=== PATIENT | female | born 1980 | race Caucasian/White ===

== ENCOUNTER 2020-01-02 05:18 | Inpatient (IN) | payer BC, OTHER ==
[2020-01-02] MEDS ORDERED: Methylergonovine 0.2 MG/1 ML Amp IM PRN (09:15)
[2020-01-02] MEDS ORDERED: Carboprost Tromethamine 250 MCG/1 ML Amp IM PRN (09:15)
[2020-01-02] MEDS ORDERED: Lactated Ringers 1,000 ML IV ONE (09:15)
[2020-01-02] MEDS ORDERED: Acetaminophen 325 MG Tab PO PRN (09:15)
[2020-01-02] MEDS ORDERED: Sodium Chloride 0.9% 10 ML Syringe FLUSH PRN (09:15)
[2020-01-02] MEDS ORDERED: Lidocaine 1% 30 ML SDV INJECT PRN (09:15)
[2020-01-02] MEDS ORDERED: Tranexamic Acid 1,000 MG in Sodium Chloride 0.9% 100 ML IV PRN (09:15)
[2020-01-02] MEDS ORDERED: Misoprostol 400 MCG (4 X 100 MCG TAB) RECTAL PRN (09:15)
[2020-01-02] MEDS ORDERED: Ondansetron 4 MG/2 ML SDV IVPUSH PRN (09:15)
[2020-01-02] MEDS ORDERED: Misoprostol 50 MCG (1/2 of 100 MCG) Tab VAG ONE ×2 (09:24→11:45)
[2020-01-02] MEDS ORDERED: Penicillin G Potassium 5 MILLUNITS in Sodium Chloride 0.9% 100 ML IV ONE (11:00)
[2020-01-02] MEDS: Lactated Ringers 1,000 ML IV SCH ×2 (11:41→22:48)
[2020-01-02] MEDS: Oxytocin/Normal Saline 30 UNIT/500 ML BAG IV SCH ×2 (15:14→21:00)
[2020-01-02] MEDS: Penicillin G Potassium 2.5 MILLUNITS in Sodium Chloride 0.9% 100 ML IV SCH ×2 (15:58→23:03)
--- NOTE | 2020-01-02 18:40 | PCM.LDHP ---
L&D History of Present Illness - General Date of Service: 01/02/20 (Admit H&P) Admit Problem/Dx: Patient Status Order with Admit Dx/Problem 01/02/20 09:16 Patient Status [ADT] Routine Admission Diagnosis/Problem Admission Diagnosis/Problem High risk Source of Information: Family, Old Records, Provider, Other ([facility] notes ) History Limitations: Reports: No Limitations - History of Present Illness Introduction:: 39yo WF presents for induction @ 39w1d as scheduled. no bleeding or LOF. baby active. no pre-E sx. 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 - Past Surgical History HEENT Surgical History: Reports: Oral Surgery GI Surgical History: Reports: Cholecystectomy Female Surgical History: Reports: Other (See Below) Other Female Surgeries/Procedures: malignant neoplasm with lumpectomy Musculoskeletal Surgical History: Reports: Arthroscopic Knee Other Musculoskeletal Surgeries/Procedures:: L) knee athroscopy 2019 Oncologic Surgical History: Reports: Lumpectomy Social & Family History - Family History Family Medical History: Unobtainable - Tobacco Use Smoking Status *Q: Never Smoker Second Hand Smoke Exposure: No - Caffeine Use Caffeine Use: Reports: Coffee - Recreational Drug Use Recreational Drug Use: No - Living Situation & Occupation Living situation: Reports: , with Significant Other Social History Comment: first baby with this new SO/Otf H&P Review of Systems - Review of Systems: Review Of Systems: Comprehensive ROS is negative, except as noted in HPI. L&D Exam - Exam Exam: See Below - Vital Signs Vital Signs: Last Vital Signs Temp 97.4 F 01/02/20 15:30 Pulse 100 01/02/20 16:30 Resp 18 01/02/20 16:30 BP 121/73 01/02/20 16:30 Pulse Ox Weight: 249 lb - OB Specific Contraction Duration (sec): 60-80 Contraction Frequency (min): 1.5-2.5 Contraction Intensity: Mild to Moderate - Srinivasan Score Srinivasan Score Cervix Position: Midposition Srinivasan Score Consistency: Soft Srinivasan Score Effacement: 0-30% Srinivasan Score Dilation: 1-2 cm Srinivasan Score 's Station: -3 Srinivasan Score Total: 4 - Exam General: Alert, Oriented HEENT: PERRLA, Conjunctiva Clear, EACs Clear, EOMI, Hearing Intact, Mucosa Moist & Hitchcock, Nares Patent, Normal Nasal Septum, Posterior Pharynx Clear, TMs Clear Neck: Supple, Trachea Midline Lungs: Clear to Auscultation, Normal Respiratory Effort Cardiovascular: Regular Rate, Regular Rhythm GI/Abdominal Exam: Normal Bowel Sounds, Soft, Non-Tender, No Organomegaly, No Distention, No Abnormal Bruit, No Mass, Pelvis Stable Rectal Exam: Normal Exam, Normal Rectal Tone Genitourinary: Normal external exam, Normal bimanual exam, Normal speculum exam Back Exam: Normal Inspection, Full Range of Motion Extremities: Normal Inspection, Normal Range of Motion, Non-Tender, Normal Capillary Refill, Pedal Edema Skin: Warm, Dry, Intact Neurological: Cranial Nerves Intact, Reflexes Equal Bilateral Psychiatric: Alert, Normal Affect, Normal Mood - Patient Data Lab Results Last 24 hrs: Laboratory Results - last 24 hr 01/02/20 01/02/20 01/02/20 Range/Units 09:15 09:25 10:33 WBC (5.0-10.0) 10^3/uL RBC (4.2-5.4) 10^6/uL Hgb (12.0-16.0) g/dL Hct (37.0-47.0) % MCV (80-100) fL MCH (27.0-34.0) pg MCHC (33.0-35.0) g/dL Plt Count (150-450) 10^3/uL BUN 6 L (7-18) mg/dL Creatinine (0.55-1.02) mg/dL Est Cr Clr Drug Dosing mL/min Estimated GFR (MDRD) Uric Acid 4.9 (2.6-6.0) mg/dL AST 20 (15-37) U/L ALT 24 (14-59) U/L Lactate Dehydrogenase 189 (81-234) U/L Urine Color Dark yellow (YELLOW) Urine Appearance Slightly cloudy (CLEAR) Urine pH 6.5 (5.0-9.0) Ur Specific [place] >= 1.030 (1.005-1.030) Urine Protein Trace H (NEGATIVE) Urine Glucose (UA) Negative (NEGATIVE) Urine Ketones Negative (NEGATIVE) Urine Occult Blood Negative (NEGATIVE) Urine Nitrite Negative (NEGATIVE) Urine Bilirubin Negative (NEGATIVE) Urine Urobilinogen 0.2 (0.2-1.0) mg/dL Ur Leukocyte Esterase Negative (NEGATIVE) Ur Random Creatinine 210.94 (No establ ref range) mg/dL U Random Total Protein 22.7 H (0.0-11.9) mg/dL Protein/Creatinin Ratio 107.6 (<150.0) mg/g SARS-CoV-2 RNA (RT-PCR) (NEGATIVE) Blood Type Gel Antibody Screen 01/02/20 01/02/20 01/02/20 Range/Units 10:33 10:33 10:33 WBC 8.5 (5.0-10.0) 10^3/uL RBC 4.53 (4.2-5.4) 10^6/uL Hgb 13.7 (12.0-16.0) g/dL Hct 40.1 (37.0-47.0) % MCV 88.5 (80-100) fL MCH 30.2 (27.0-34.0) pg MCHC 34.2 (33.0-35.0) g/dL Plt Count 153 (150-450) 10^3/uL BUN (7-18) mg/dL Creatinine 0.85 (0.55-1.02) mg/dL Est Cr Clr Drug Dosing 92.86 mL/min Estimated GFR (MDRD) > 60 Uric Acid (2.6-6.0) mg/dL AST (15-37) U/L ALT (14-59) U/L Lactate Dehydrogenase (81-234) U/L Urine Color (YELLOW) Urine Appearance (CLEAR) Urine pH (5.0-9.0) Ur Specific [place] (1.005-1.030) Urine Protein (NEGATIVE) Urine Glucose (UA) (NEGATIVE) Urine Ketones (NEGATIVE) Urine Occult Blood (NEGATIVE) Urine Nitrite (NEGATIVE) Urine Bilirubin (NEGATIVE) Urine Urobilinogen (0.2-1.0) mg/dL Ur Leukocyte Esterase (NEGATIVE) Ur Random Creatinine (No establ ref range) mg/dL U Random Total Protein (0.0-11.9) mg/dL Protein/Creatinin Ratio (<150.0) mg/g SARS-CoV-2 RNA (RT-PCR) (NEGATIVE) Blood Type A POSITIVE Gel Antibody Screen Negative 01/02/20 Range/Units 10:35 WBC (5.0-10.0) 10^3/uL RBC (4.2-5.4) 10^6/uL Hgb (12.0-16.0) g/dL Hct (37.0-47.0) % MCV (80-100) fL MCH (27.0-34.0) pg MCHC (33.0-35.0) g/dL Plt Count (150-450) 10^3/uL BUN (7-18) mg/dL Creatinine (0.55-1.02) mg/dL Est Cr Clr Drug Dosing mL/min Estimated GFR (MDRD) Uric Acid (2.6-6.0) mg/dL AST (15-37) U/L ALT (14-59) U/L Lactate Dehydrogenase (81-234) U/L Urine Color (YELLOW) Urine Appearance (CLEAR) Urine pH (5.0-9.0) Ur Specific [place] (1.005-1.030) Urine Protein (NEGATIVE) Urine Glucose (UA) (NEGATIVE) Urine Ketones (NEGATIVE) Urine Occult Blood (NEGATIVE) Urine Nitrite (NEGATIVE) Urine Bilirubin (NEGATIVE) Urine Urobilinogen (0.2-1.0) mg/dL Ur Leukocyte Esterase (NEGATIVE) Ur Random Creatinine (No establ ref range) mg/dL U Random Total Protein (0.0-11.9) mg/dL Protein/Creatinin Ratio (<150.0) mg/g SARS-CoV-2 RNA (RT-PCR) Negative (NEGATIVE) Blood Type Gel Antibody Screen Result Diagrams: 01/02/20 10:33 01/02/20 10:33 Problem List Initiated/Reviewed/Updated: Yes Orders Last 24hrs: Active Orders 24 hr Category Date Time Status Patient Status [ADT] Routine ADT 01/02/20 09:16 Active Communication Order [RC] ASDIRECTED Care 01/02/20 09:16 Active Heart Tones [RC] PER UNIT ROUTINE Care 01/02/20 09:16 Active Notify Provider Vital Signs OB [RC] ASDIRECTED Care 01/02/20 09:16 Active Notify Provider [RC] PRN Care 01/02/20 09:16 Active Pump Management, Intrathecal [RC] ASDIRECTED Care 01/02/20 09:19 Active Up ad Abida [RC] ASDIRECTED Care 01/02/20 09:16 Active Vital Signs [RC] PER UNIT ROUTINE Care 01/02/20 09:16 Active Acetaminophen [Tylenol] Med 01/02/20 09:15 Active 650 mg PO Q4H PRN Carboprost Tromethamine [Hemabate DS] Med 01/02/20 09:15 Active 250 mcg IM ASDIRECTED PRN Lactated Ringers [Ringers, Lactated] 1,000 ml Med 01/02/20 09:15 Active IV ASDIRECTED Lidocaine 1% [Xylocaine-MPF 1%] Med 01/02/20 09:15 Active 30 ml INJECT ASDIRECTED PRN Methylergonovine [Methergine] Med 01/02/20 09:15 Active 0.2 mg IM ASDIRECTED PRN Ondansetron [Zofran] Med 01/02/20 09:15 Active 4 mg IVPUSH Q4H PRN Oxytocin/Normal Saline [Pitocin in NS 30 UNIT/500 ML] Med 01/02/20 10:00 Active 30 unit in 500 ml IV TITRATE Penicillin G Potassium [Pfizerpen] 2.5 millunits Med 01/02/20 20:00 Active Sodium Chloride 0.9% [Normal Saline] 100 ml IV Q4H Sodium Chloride 0.9% [Saline Flush] Med 01/02/20 09:15 Active 10 ml FLUSH ASDIRECTED PRN Tranexamic Acid [Cyklokapron] 1,000 mg Med 01/02/20 09:15 Active Sodium Chloride 0.9% [Normal Saline] 100 ml IV ONETIME miSOPROStoL [Cytotec] Med 01/02/20 09:15 Active 800 mcg RECTAL ASDIRECTED PRN Saline Lock Insert [OM.PC] Routine Oth 01/02/20 09:16 Ordered Resuscitation Status Routine Resus Stat 01/02/20 09:15 Ordered Medication Orders Acetaminophen (Tylenol) 650 mg PO Q4H PRN PRN Reason: Pain (Mild 1-3) and fever Carboprost Tromethamine (Hemabate Ds) 250 mcg IM ASDIRECTED PRN PRN Reason: HEMORRHAGE Lactated Ringer's (Ringers, Lactated) 1,000 mls @ 125 mls/hr IV ASDIRECTED LOLA Last Admin: 01/02/20 11:41 Dose: 125 mls/hr Oxytocin/Sodium Chloride (Pitocin In Ns 30 Unit/500 Ml) 30 unit in 500 mls @ 2 mls/hr IV TITRATE LOLA; Protocol Last Titration: 01/02/20 18:15 Dose: 7 munits/min, 7 mls/hr Titration: 01/02/20 17:15 Dose: 5 munits/min, 5 mls/hr Titration: 01/02/20 16:45 Dose: 6 munits/min, 6 mls/hr Titration: 01/02/20 16:00 Dose: 4 munits/min, 4 mls/hr Admin: 01/02/20 15:14 Dose: 2 munits/min, 2 mls/hr Tranexamic Acid 1,000 mg/ (Sodium Chloride) 110 mls @ 660 mls/hr IV ONETIME PRN PRN Reason: Bleeding Penicillin G Potassium 2.5 (millunits/ Sodium Chloride) 100 mls @ 200 mls/hr IV Q4H [facility] Lidocaine HCl (Xylocaine-Mpf 1%) 30 ml INJECT ASDIRECTED PRN PRN Reason: Perineal Repair Methylergonovine Maleate (Methergine) 0.2 mg IM ASDIRECTED PRN PRN Reason: Hemorrhage Misoprostol (Cytotec) 800 mcg RECTAL ASDIRECTED PRN PRN Reason: Hemorrhage Ondansetron HCl (Zofran) 4 mg IVPUSH Q4H PRN PRN Reason: Nausea/Vomiting Sodium Chloride (Saline Flush) 10 ml FLUSH ASDIRECTED PRN PRN Reason: Keep Vein Open Assessment/Plan Comment:: Assessment: 39yo WF G5p#013 @ 39w1d high risk AMA Hx gestational thrombocytopenia and pre-E, PLT 153 today BP WNL GBS positive A+ blood type RI anxiety hypothyroid Hx breast cancer NST reactive labs reassuring Plan: admit cytotec 50mcg consider repeat cytotec, pitocin or AROM as indicated appropriate as discussed. PCN IV prophylaxis as ordered. all questions answered for Jennifer and Otf. further management pending her clinical course in labor. b
--- NOTE | 2020-01-02 18:46 | PCM.SN.2 ---
- Free Text/Narrative Note: DOS: 01-02-2020 39yo WF doing well. 39w1d presented for induction this morning had 50mcg Cytotec this a.m. and is now started on pitocin. having cxns but not really feeling them. Has had 2 doses of PCN for GBS positive status tracing reassuring cervix soft, 3+ BOWI AROM carried out with return of large amount clear fluid vertex settling down against cervix nicely ?finger @ 8 o'clock position will continue to watch closely. further management pending her clinical course. all questions answered. hmb
[2020-01-02] MEDS ORDERED: Citric Acid/Sodium Citrate Solution 30 ML Cup ONE (19:28)
[2020-01-02] MEDS ORDERED: Citric Acid/Sodium Citrate Solution 30 ML Cup PO ONE (19:28)
[2020-01-02] MEDS ORDERED: ceFAZolin 2 GM in Premix Bag 1 BAG IV ONE (19:39)
[2020-01-02] MEDS ORDERED: Oxytocin/Normal Saline 60 UNIT/1,000 ML BAG ONE (19:41)
[2020-01-02] MEDS ORDERED: Penicillin G Potassium 2.5 MILLUNITS in Sodium Chloride 0.9% 100 ML IV SCH (20:00)
[2020-01-02] MEDS ORDERED: Famotidine 20 MG/2 ML SDV ONE (21:03)
[2020-01-02] MEDS ORDERED: HYDROmorphone 0.5 MG/0.5 ML Syringe IVPUSH PRN (21:16)
[2020-01-02] MEDS ORDERED: Promethazine 25 MG/ML SDV IM PRN (21:19)
--- NOTE | 2020-01-02 21:22 | PN ---
DATE: 01/02/2020 This delightful 39-year-old 5, para 3-0-1-3 presented as scheduled at 39 weeks 1 day for induction for her high-risk . Risk factors include advanced maternal age, history of gestational thrombocytopenia and preeclampsia, history of breast cancer which has been treated, positive group B strep, hypothyroidism, anxiety. She is A-positive blood type and rubella immune. On admission today, her labs were drawn and her platelet count was up to 153, and she had reassuring labs otherwise. She was started on IV penicillin for group B strep prophylaxis. Her nonstress test was reassuring. Cervix was 2 cm dilated, 25% effaced, minus 3 station, very soft, mid position to anterior with a vertex presentation, and bag of water intact. Cytotec 50 mcg was placed. 4 hours later, we started Pitocin IV. She developed contractions and her cervix progressed onto 3+ cm dilated. The head was palpable against the cervix. Minus 3 station. Artificial rupture of membranes was carried out with return of very large copious amount of clear fluid. Towards the end of the fluid, we did notice some bleeding. Examination showed the vertex to be against the cervix; however, I could not palpate what appeared to possibly be a finger at the 8 o'clock position. She continued to have leaking of fluid, but was noticed to have increased bright red bleeding. She denied any uterine tenderness, but was feeling more pressure. She did develop some variable decelerations and these became increasingly pronounced with each contraction. On examination, her cervix was dilating. A hand could still be palpated. She was also noted to have increasing bright red bleeding anteriorly from the cervix. A quick-look ultrasound did show vertex presentation. There was no evidence of a nuchal cord that could be seen. The finger had essentially resolved, though I could still feel it very far up posteriorly. However, with the continued variable decelerations and continued vaginal bleeding and her history of gestational thrombocytopenia and preeclampsia, concern for placental abruption and her being remote from vaginal delivery, decision was made to proceed with primary low transverse section as had been discussed with the patient and her partner. We will review the procedure with them. Dr. Day will be here to assist. We will review the risks, alternatives, and benefits. Risks will include, but not be limited to, possible hemorrhage with possible need for blood transfusion with its inherent risks. I have already ordered a type and screen this morning with her blood work in anticipation of possible need of a C- section. We will order 2 g of Ancef for her for preop antibiotics, and she will be due for her next dose of antibiotics at 8 o'clock anyway. We will review risk of reaction to anesthesia; possible injury to maternal organs or fetus; possible risk of DVT, PE; and the use of ARAM stockings, SCDs, and early ambulation, etc. Anticipate use of spinal anesthesia and hopefully Pfannenstiel incision, further management pending her clinical course. All other questions would be answered and consent obtained and form signed. [facility] /[id number]
[2020-01-02] MEDS ORDERED: Butorphanol 2 MG/ML SDV IVPUSH PRN (21:25)
[2020-01-02] MEDS ORDERED: Naloxone 2 MG/2 ML Syringe IVPUSH PRN (21:59)
[2020-01-02] MEDS ORDERED: diphenhydrAMINE 50 MG/ML SDV IVPUSH PRN (21:59)
[2020-01-02] MEDS ORDERED: ePHEDrine 50 MG/ML SDV IVPUSH PRN (21:59)
[2020-01-02] MEDS ORDERED: Ketorolac 30 MG/ML SDV IVPUSH SCH (22:00)
--- NOTE | 2020-01-02 23:39 | OR ---
DATE: 01/02/2020 PREOPERATIVE DIAGNOSES: 1. A 39-year-old, 5, para 3-0-1-3 at 39 week 1 day. 2. High risk intrauterine . 3. Advanced maternal age. 4. Non-reassuring heart tone pattern with vaginal bleeding. 5. Suspect placental abruption. 6. Group B streptococcus positive, receiving penicillin prophylaxis. 7. History of gestational thrombocytopenia and preeclampsia with variable platelet count, admit platelets 153. 8. Hypothyroidism, controlled. 9. Blood type A positive. 10.Rubella immune. 11.Anxiety. 12.History of breast cancer, treated. 13.Unsuccessful induction. POSTOPERATIVE DIAGNOSES: 1. A 39-year-old white female, 5, now para 4-0-1-4. 2. High risk . 3. Advanced maternal age, 39 weeks 1 day. 4. Non-reassuring heart tone pattern with confirmed placental abruption/bleeding. 5. A viable male infant, greater than 4000 g. 6. Suspect placental abruption. 7. Group B streptococcus positive, receiving penicillin prophylaxis. 8. History of gestational thrombocytopenia and preeclampsia with variable platelet count, admit platelets 153. 9. Hypothyroidism, controlled. 10.Blood type A positive. 11.Rubella immune. 12.Anxiety. 13.History of breast cancer, treated. 14.Unsuccessful induction. PROCEDURE: Primary low-transverse section. ANESTHESIA: Spinal per Koko Mello CRNA. ASSISTING SURGEON: Georges Day MD, ABSORPTION AND ADSORPTION ENGINEER. PREOPERATIVE ANTIBIOTICS: 2 g Ancef immediately preop, prophylactic penicillin x2 doses received for group B Strep positive status since admission. ESTIMATED BLOOD LOSS: 1000 mL. INDICATIONS: This delightful 39-year-old, G5, P 3-0-1-3, presented for induction and subsequently was found to have vaginal bleeding and non-reassuring heart tone tracing and was remote from vaginal delivery. The decision was made to proceed with primary low-transverse section. The status showed very deep variable decelerations, however, was recovering between contractions. Therefore, we elected to proceed with a spinal anesthesia. PROCEDURE IN DETAIL: A Inman catheter had been placed on the floor, and she underwent spinal anesthesia without complications and with excellent results. She was subsequently prepped and draped in the usual sterile manner. A time-out was performed in my presence. A skin incision had been marked in the anticipated Pfannenstiel placement. The patient was tested and had excellent anesthesia. A scalpel was used to make a skin incision. Electrocautery was used down through the subcutaneous tissue to the fascia, which was divided transversely. Superior and inferior fascial flaps were developed with sharp and blunt dissection. The rectus was divided in the midline, and the peritoneum was identified and entered bluntly. The incision was opened until we had excellent visualization of the lower uterine segment. An XL Gilberto retractor was placed without difficulty. A stab incision was made by me into the lower uterine segment. Dr. Day entered the uterus bluntly and immediately a very large amount of dark blood was encountered and continued to rapidly come out of the uterine incision. We subsequently extended the uterine incision bluntly until we encounter the vertex which was elevated up into the uterine incision without difficulty. The hand could be seen as expected posteriorly, but did not seem to be causing any difficulty. The baby was delivered without incident, and the cord was noted to be wrapped twice around his right leg, however, it was easily untangled. No nuchal cord was noted. The cord was doubly clamped by me and then cut. The baby was suctioned and wiped clean and dry and had a strong cry at . He was shown to the parents and then brought over to the warmer to the waiting nursery staff. Note, his time of was 2021 on 01/02/2020, and weight was later found to be 8 pounds 15 ounces/4040 g with scores of 9 and 9 at 1 and 5 minutes respectively. This viable male had voided immediately after delivery. Cord blood sample was obtained by . The uterus was firming up and the placenta was removed with trailing membranes. The uterus was empty and the incision edges were grasped with Lopez forceps. They were closed with a running locking #1 Vicryl suture. [id number] hemostatic sutures were placed at the end of both the right and left side of the incision. More hemostatic sutures were placed by Dr. Day on the left side of the incision on the inferior portion, and hemostasis was confirmed. Electrocautery was used to stop any areas of oozing. The incision was again examined and found to be hemostatic. The gutters were examined and were free of all clots with no sign of active bleeding. The Gilberto retractor was removed, and the incision was examined once again and found to be hemostatic. Irrigation fluid was placed over the incision and suctioned with the final examination showing hemostasis. The peritoneum was closed with running suture. The fascia was closed with a running PDS loop suture with excellent results. Subcutaneous tissue was examined and any bleeders were electrocauterized. The skin was closed with a subcuticular suture on a Thaddeus needle. Tincture of benzoin was applied to the skin followed by Steri-Strips and sterile dressing. The patient tolerated the procedure well. Her Inman continued to drain clear urine. All counts were correct. There were no intraoperative complications. She continued to have Pitocin running per protocol infusing in her IV, and her fundus was firm. [facility] /[id number]
[2020-01-03] MEDS: Ketorolac 30 MG/ML SDV IVPUSH SCH ×3 (02:46→14:47)
[2020-01-03] MEDS: ceFAZolin 1 GM in Premix Bag 1 BAG IV SCH ×3 (05:27→21:48)
[2020-01-03] MEDS: Lactated Ringers 1,000 ML IV SCH (08:15)
[2020-01-03] MEDS: Prenatal Multivitamin with Calcium/Folic Acid/Iron Tab PO SCH (08:29)
[2020-01-03] MEDS: Docusate Sodium 100 MG Cap PO PRN ×2 (08:30→21:48)
[2020-01-03] MEDS: Simethicone 80 MG Tab.Chew PO SCH ×4 (08:30→21:47)
--- NOTE | 2020-01-03 09:42 | PCM.PNPP ---
- General Info Date of Service: 01/03/20 (POD/PPD#1 S/P Primary LTC/S) Functional Status: Reports: Pain Controlled, Tolerating Diet, Ambulating - Review of Systems General: Reports: No Symptoms HEENT: Reports: No Symptoms Pulmonary: Reports: No Symptoms Cardiovascular: Reports: No Symptoms Gastrointestinal: Reports: No Symptoms Genitourinary: Reports: No Symptoms Musculoskeletal: Reports: No Symptoms Skin: Reports: No Symptoms Neurological: Reports: No Symptoms Psychiatric: Reports: No Symptoms - General Info Date of Service: 01/03/20 (PPD/POD # 1 S/P Primary LTC/S) - Patient Data Vital Signs - Most Recent: Last Vital Signs Temp 98.6 F 01/03/20 08:00 Pulse 97 01/03/20 08:00 Resp 16 01/03/20 08:00 BP 102/66 01/03/20 08:00 Pulse Ox 100 01/03/20 08:00 Weight - Most Recent: 249 lb I&O - Last 24 Hours: Intake & Output 01/02/20 01/03/20 01/03/20 22:59 06:59 14:59 Intake Total 187 350 Output Total 1275 550 Balance 187 -1275 -200 Lab Results - Last 24 Hours: Laboratory Results - last 24 hr 01/02/20 01/02/20 01/02/20 Range/Units 09:15 09:25 10:33 WBC (5.0-10.0) 10^3/uL RBC (4.2-5.4) 10^6/uL Hgb (12.0-16.0) g/dL Hct (37.0-47.0) % MCV (80-100) fL MCH (27.0-34.0) pg MCHC (33.0-35.0) g/dL Plt Count (150-450) 10^3/uL BUN 6 L (7-18) mg/dL Creatinine (0.55-1.02) mg/dL Est Cr Clr Drug Dosing mL/min Estimated GFR (MDRD) Uric Acid 4.9 (2.6-6.0) mg/dL AST 20 (15-37) U/L ALT 24 (14-59) U/L Lactate Dehydrogenase 189 (81-234) U/L Urine Color Dark yellow (YELLOW) Urine Appearance Slightly cloudy (CLEAR) Urine pH 6.5 (5.0-9.0) Ur Specific [place] >= 1.030 (1.005-1.030) Urine Protein Trace H (NEGATIVE) Urine Glucose (UA) Negative (NEGATIVE) Urine Ketones Negative (NEGATIVE) Urine Occult Blood Negative (NEGATIVE) Urine Nitrite Negative (NEGATIVE) Urine Bilirubin Negative (NEGATIVE) Urine Urobilinogen 0.2 (0.2-1.0) mg/dL Ur Leukocyte Esterase Negative (NEGATIVE) Ur Random Creatinine 210.94 (No establ ref range) mg/dL U Random Total Protein 22.7 H (0.0-11.9) mg/dL Protein/Creatinin Ratio 107.6 (<150.0) mg/g SARS-CoV-2 RNA (RT-PCR) (NEGATIVE) Blood Type Gel Antibody Screen 01/02/20 01/02/20 01/02/20 Range/Units 10:33 10:33 10:33 WBC 8.5 (5.0-10.0) 10^3/uL RBC 4.53 (4.2-5.4) 10^6/uL Hgb 13.7 (12.0-16.0) g/dL Hct 40.1 (37.0-47.0) % MCV 88.5 (80-100) fL MCH 30.2 (27.0-34.0) pg MCHC 34.2 (33.0-35.0) g/dL Plt Count 153 (150-450) 10^3/uL BUN (7-18) mg/dL Creatinine 0.85 (0.55-1.02) mg/dL Est Cr Clr Drug Dosing 92.86 mL/min Estimated GFR (MDRD) > 60 Uric Acid (2.6-6.0) mg/dL AST (15-37) U/L ALT (14-59) U/L Lactate Dehydrogenase (81-234) U/L Urine Color (YELLOW) Urine Appearance (CLEAR) Urine pH (5.0-9.0) Ur Specific [place] (1.005-1.030) Urine Protein (NEGATIVE) Urine Glucose (UA) (NEGATIVE) Urine Ketones (NEGATIVE) Urine Occult Blood (NEGATIVE) Urine Nitrite (NEGATIVE) Urine Bilirubin (NEGATIVE) Urine Urobilinogen (0.2-1.0) mg/dL Ur Leukocyte Esterase (NEGATIVE) Ur Random Creatinine (No establ ref range) mg/dL U Random Total Protein (0.0-11.9) mg/dL Protein/Creatinin Ratio (<150.0) mg/g SARS-CoV-2 RNA (RT-PCR) (NEGATIVE) Blood Type A POSITIVE Gel Antibody Screen Negative 01/02/20 01/03/20 Range/Units 10:35 06:30 WBC 13.8 H (5.0-10.0) 10^3/uL RBC 3.50 L (4.2-5.4) 10^6/uL Hgb 10.6 L D (12.0-16.0) g/dL Hct 31.3 L (37.0-47.0) % MCV 89.4 (80-100) fL MCH 30.3 (27.0-34.0) pg MCHC 33.9 (33.0-35.0) g/dL Plt Count 157 (150-450) 10^3/uL BUN (7-18) mg/dL Creatinine (0.55-1.02) mg/dL Est Cr Clr Drug Dosing mL/min Estimated GFR (MDRD) Uric Acid (2.6-6.0) mg/dL AST (15-37) U/L ALT (14-59) U/L Lactate Dehydrogenase (81-234) U/L Urine Color (YELLOW) Urine Appearance (CLEAR) Urine pH (5.0-9.0) Ur Specific [place] (1.005-1.030) Urine Protein (NEGATIVE) Urine Glucose (UA) (NEGATIVE) Urine Ketones (NEGATIVE) Urine Occult Blood (NEGATIVE) Urine Nitrite (NEGATIVE) Urine Bilirubin (NEGATIVE) Urine Urobilinogen (0.2-1.0) mg/dL Ur Leukocyte Esterase (NEGATIVE) Ur Random Creatinine (No establ ref range) mg/dL U Random Total Protein (0.0-11.9) mg/dL Protein/Creatinin Ratio (<150.0) mg/g SARS-CoV-2 RNA (RT-PCR) Negative (NEGATIVE) Blood Type Gel Antibody Screen Med Orders - Current: Current Medications Acetaminophen (Tylenol) 650 mg PO Q4H PRN PRN Reason: Pain (Mild 1-3) and fever Butorphanol Tartrate (Stadol) 0.4 mg IVPUSH Q3H PRN PRN Reason: Itching Last Admin: 01/02/20 21:51 Dose: 0.4 mg Carboprost Tromethamine (Hemabate Ds) 250 mcg IM ASDIRECTED PRN PRN Reason: HEMORRHAGE Diphenhydramine HCl (Benadryl) 25 mg IVPUSH Q6H PRN PRN Reason: Itching or Nausea Last Admin: 01/02/20 22:35 Dose: 25 mg Docusate Sodium (Colace) 100 mg PO Q12H PRN PRN Reason: Constipation Last Admin: 01/03/20 08:30 Dose: 100 mg Ephedrine Sulfate (Ephedrine Sulfate) 5 mg IVPUSH SEECOMMENT PRN PRN Reason: Other Hydromorphone HCl (Dilaudid) 0.5 mg IVPUSH Q2H PRN PRN Reason: Pain (moderate 4-6) Lactated Ringer's (Ringers, Lactated) 1,000 mls @ 125 mls/hr IV ASDIRECTED LOLA Last Admin: 01/03/20 08:15 Dose: 125 mls/hr Oxytocin/Sodium Chloride (Pitocin In Ns 30 Unit/500 Ml) 30 unit in 500 mls @ 2 mls/hr IV TITRATE LOLA; Protocol Last Titration: 01/02/20 23:10 Dose: 0 mls/hr Tranexamic Acid 1,000 mg/ (Sodium Chloride) 110 mls @ 660 mls/hr IV ONETIME PRN PRN Reason: Bleeding Cefazolin Sodium/Dextrose 1 gm (/ Premix) 50 mls @ 100 mls/hr IV Q8HR [facility]A Stop: 01/03/20 22:29 Last Admin: 01/03/20 05:27 Dose: 100 mls/hr Ibuprofen (Motrin) 800 mg PO Q8H PRN PRN Reason: mild pain or fever Ketorolac Tromethamine (Toradol) 15 mg IVPUSH Q6H LOLA Stop: 01/03/20 15:01 Last Admin: 01/03/20 08:30 Dose: 15 mg Lidocaine HCl (Xylocaine-Mpf 1%) 30 ml INJECT ASDIRECTED PRN PRN Reason: Perineal Repair Methylergonovine Maleate (Methergine) 0.2 mg IM ASDIRECTED PRN PRN Reason: Hemorrhage Misoprostol (Cytotec) 800 mcg RECTAL ASDIRECTED PRN PRN Reason: Hemorrhage Naloxone HCl (Narcan) 0.1 mg IVPUSH SEECOMMENT PRN PRN Reason: Respiratory Depression Ondansetron HCl (Zofran) 4 mg IVPUSH Q4H PRN PRN Reason: Nausea/Vomiting Oxycodone/Acetaminophen (Percocet 325-5 Mg) 1 tab PO Q4H PRN PRN Reason: Pain (moderate 4-6) Oxycodone/Acetaminophen (Percocet 325-5 Mg) 2 tab PO Q4H PRN PRN Reason: Pain (moderate 4-6) Prenat Multivit/[place]/Iron/Folic Ac ( Plus Iron) 1 each PO DAILY [facility] Last Admin: 01/03/20 08:29 Dose: 1 each Promethazine HCl (Phenergan) 12.5 mg IM Q6H PRN PRN Reason: Nausea/Vomiting Simethicone (Simethicone) 160 mg PO QID [facility] Last Admin: 01/03/20 08:30 Dose: 160 mg Sodium Chloride (Saline Flush) 10 ml FLUSH ASDIRECTED PRN PRN Reason: Keep Vein Open Discontinued Medications Citric Acid/Sodium Citrate (Bicitra Solution) Confirm Administered Dose 30 ml .ROUTE .STK-MED ONE Stop: 01/02/20 19:29 Last Admin: 01/02/20 19:50 Dose: 30 ml Famotidine (Pepcid) Confirm Administered Dose 20 mg .ROUTE .STK-MED ONE Stop: 01/02/20 21:04 Lactated Ringer's (Ringers, Lactated) 1,000 mls @ 500 mls/hr IV BOLUS ONE Stop: 01/02/20 11:14 Last Admin: 01/02/20 22:41 Dose: Not Given Penicillin G Potassium 5 (millunits/ Sodium Chloride) 100 mls @ 200 mls/hr IV ONETIME ONE Stop: 01/02/20 11:29 Last Admin: 01/02/20 11:42 Dose: 200 mls/hr Penicillin G Potassium 2.5 (millunits/ Sodium Chloride) 100 mls @ 200 mls/hr IV Q4HR [facility] Last Admin: 01/02/20 23:03 Dose: Not Given Penicillin G Potassium 2.5 (millunits/ Sodium Chloride) 100 mls @ 200 mls/hr IV Q4H [facility] Last Admin: 01/02/20 22:47 Dose: Not Given Cefazolin Sodium/Dextrose 2 gm (/ Premix) 50 mls @ 100 mls/hr IV ONETIME ONE Stop: 01/02/20 20:08 Last Admin: 01/02/20 19:54 Dose: 100 mls/hr Oxytocin/Sodium Chloride (Pitocin In Ns 30 Unit/500 Ml) Confirm Administered Dose 60 unit in 1,000 mls @ as directed .ROUTE .STK-MED ONE Stop: 01/02/20 19:42 Misoprostol (Cytotec) 50 mcg VAG ONETIME ONE Stop: 01/02/20 09:25 Last Admin: 01/02/20 11:46 Dose: Not Given Misoprostol (Cytotec) 50 mcg VAG ONETIME ONE Stop: 01/02/20 11:46 Last Admin: 01/02/20 11:47 Dose: 50 mcg - Interaction Infant Disposition, : [place] in Room with Family Interaction: Holding Infant Infant Feeding: Bottle Fed Infant Support Person: Significant Other - Recovery Exam Fundal Tone: Firm Fundal Level: At Umbilicus Fundal Placement: Midline Lochia Amount: Small Lochia Color: Rubra/Red Perineum Description: Intact, Minimal Bruising/Swelling Episiotomy/Laceration: None Bladder Status: Nonpalpable Urinary Elimination: Indwelling Catheter - Exam General: Alert, Oriented, Cooperative, No Acute Distress HEENT: Pupils Equal, Pupils Reactive, EOMI, Mucous Membr. Moist/[place] Neck: Supple Lungs: Clear to Auscultation, Normal Respiratory Effort Cardiovascular: Regular Rate, Regular Rhythm, No Murmurs GI/Abdominal Exam: Normal Bowel Sounds, Soft, Non-Tender, No Distention Extremities: Normal Inspection, Normal Range of Motion, Non-Tender, No Pedal Edema, Normal Capillary Refill Skin: Warm, Dry, Intact Wound/Incisions: Drainage (Slight drainage on right and left side through bandage otherwise dry and intact.) Neurological: No New Focal Deficit, Normal Gait, Normal Speech, Normal Tone, Strength Equal Bilateral Psy/Mental Status: Alert, Normal Affect, Normal Mood - Problem List Review Problem List Initiated/Reviewed/Updated: Yes - Assessment Assessment:: PPD/POD # 1 S/P LTC/S Doing well Slight drainage through bandage/dressing - Plan Plan:: PLAN: Continue present care Increase ambulation Remove menjivar catheter this evening All questions answered.
[2020-01-03] MEDS ORDERED: Ketorolac 30 MG/ML SDV IVPUSH ONE (11:39)
[2020-01-03] MEDS ORDERED: Lactated Ringers 1,000 ML IV ONE (11:39)
[2020-01-03] MEDS ORDERED: Famotidine 20 MG/2 ML SDV IV ONE (11:39)
[2020-01-03] MEDS: Acetaminophen/oxyCODONE 325-5 MG Tab PO PRN (19:42)
[2020-01-03] MEDS: Ibuprofen 800 MG Tab PO PRN (22:39)
[2020-01-04] MEDS: Acetaminophen/oxyCODONE 325-5 MG Tab PO PRN ×5 (03:14→22:40)
[2020-01-04] MEDS: Simethicone 80 MG Tab.Chew PO SCH ×4 (08:29→22:38)
[2020-01-04] MEDS: Ibuprofen 800 MG Tab PO PRN ×3 (08:30→22:41)
[2020-01-04] MEDS: Prenatal Multivitamin with Calcium/Folic Acid/Iron Tab PO SCH (08:30)
[2020-01-04] MEDS: Docusate Sodium 100 MG Cap PO PRN ×2 (08:30→22:38)
[2020-01-04] MEDS ORDERED: Ferrous Sulfate 325 MG Tab PO STA (11:46)
--- NOTE | 2020-01-04 11:55 | PCM.PNPP ---
- General Info Date of Service: 01/04/20 (PPD/POD #2 S/P Primary LTC/S) Functional Status: Reports: Pain Controlled, Tolerating Diet, Ambulating, Urinating - Review of Systems General: Reports: No Symptoms HEENT: Reports: No Symptoms Pulmonary: Reports: No Symptoms Cardiovascular: Reports: No Symptoms Gastrointestinal: Reports: No Symptoms Genitourinary: Reports: No Symptoms Musculoskeletal: Reports: No Symptoms Skin: Reports: No Symptoms Neurological: Reports: No Symptoms Psychiatric: Reports: No Symptoms - General Info Date of Service: 01/04/20 (PPD/POD # 2 S/P Primary LTC/S) - Patient Data Vital Signs - Most Recent: Last Vital Signs Temp 99.2 F 01/04/20 08:00 Pulse 105 H 01/04/20 08:00 Resp 16 01/04/20 08:00 BP 118/75 01/04/20 08:00 Pulse Ox 98 01/04/20 08:00 Weight - Most Recent: 249 lb I&O - Last 24 Hours: Intake & Output 01/03/20 01/04/20 01/04/20 22:59 06:59 14:59 Intake Total 300 320 Output Total 995 Balance -695 320 Med Orders - Current: Current Medications Acetaminophen (Tylenol) 650 mg PO Q4H PRN PRN Reason: Pain (Mild 1-3) and fever Butorphanol Tartrate (Stadol) 0.4 mg IVPUSH Q3H PRN PRN Reason: Itching Last Admin: 01/02/20 21:51 Dose: 0.4 mg Carboprost Tromethamine (Hemabate Ds) 250 mcg IM ASDIRECTED PRN PRN Reason: HEMORRHAGE Diphenhydramine HCl (Benadryl) 25 mg IVPUSH Q6H PRN PRN Reason: Itching or Nausea Last Admin: 01/02/20 22:35 Dose: 25 mg Docusate Sodium (Colace) 100 mg PO Q12H PRN PRN Reason: Constipation Last Admin: 01/04/20 08:30 Dose: 100 mg Ephedrine Sulfate (Ephedrine Sulfate) 5 mg IVPUSH SEECOMMENT PRN PRN Reason: Other Ferrous Sulfate (Ferrous Sulfate) 325 mg PO BIDMEALS LOLA Ferrous Sulfate (Ferrous Sulfate) 325 mg PO NOW STA Stop: 01/04/20 11:47 Hydromorphone HCl (Dilaudid) 0.5 mg IVPUSH Q2H PRN PRN Reason: Pain (moderate 4-6) Lactated Ringer's (Ringers, Lactated) 1,000 mls @ 125 mls/hr IV ASDIRECTED [facility] Last Infusion: 01/03/20 17:03 Dose: Infused Oxytocin/Sodium Chloride (Pitocin In Ns 30 Unit/500 Ml) 30 unit in 500 mls @ 2 mls/hr IV TITRATE [facility]; Protocol Last Titration: 01/02/20 23:10 Dose: 0 mls/hr Tranexamic Acid 1,000 mg/ (Sodium Chloride) 110 mls @ 660 mls/hr IV ONETIME PRN PRN Reason: Bleeding Ibuprofen (Motrin) 800 mg PO Q8H PRN PRN Reason: mild pain or fever Last Admin: 01/04/20 08:30 Dose: 800 mg Lidocaine HCl (Xylocaine-Mpf 1%) 30 ml INJECT ASDIRECTED PRN PRN Reason: Perineal Repair Methylergonovine Maleate (Methergine) 0.2 mg IM ASDIRECTED PRN PRN Reason: Hemorrhage Misoprostol (Cytotec) 800 mcg RECTAL ASDIRECTED PRN PRN Reason: Hemorrhage Naloxone HCl (Narcan) 0.1 mg IVPUSH SEECOMMENT PRN PRN Reason: Respiratory Depression Ondansetron HCl (Zofran) 4 mg IVPUSH Q4H PRN PRN Reason: Nausea/Vomiting Oxycodone/Acetaminophen (Percocet 325-5 Mg) 1 tab PO Q4H PRN PRN Reason: Pain (moderate 4-6) Oxycodone/Acetaminophen (Percocet 325-5 Mg) 2 tab PO Q4H PRN PRN Reason: Pain (moderate 4-6) Last Admin: 01/04/20 08:30 Dose: 2 tab Prenat Multivit/[employer]/Iron/Folic Ac ( Plus Iron) 1 each PO DAILY [facility] Last Admin: 01/04/20 08:30 Dose: 1 each Promethazine HCl (Phenergan) 12.5 mg IM Q6H PRN PRN Reason: Nausea/Vomiting Simethicone (Simethicone) 160 mg PO QID [facility] Last Admin: 01/04/20 08:29 Dose: 160 mg Sodium Chloride (Saline Flush) 10 ml FLUSH ASDIRECTED PRN PRN Reason: Keep Vein Open Discontinued Medications Citric Acid/Sodium Citrate (Bicitra Solution) Confirm Administered Dose 30 ml .ROUTE .[facility]-MED ONE Stop: 01/02/20 19:29 Last Admin: 01/02/20 19:50 Dose: 30 ml Famotidine (Pepcid) Confirm Administered Dose 20 mg .ROUTE .[facility] ONE Stop: 01/02/20 21:04 Lactated Ringer's (Ringers, Lactated) 1,000 mls @ 500 mls/hr IV BOLUS ONE Stop: 01/02/20 11:14 Last Admin: 01/02/20 22:41 Dose: Not Given Penicillin G Potassium 5 (millunits/ Sodium Chloride) 100 mls @ 200 mls/hr IV ONETIME ONE Stop: 01/02/20 11:29 Last Admin: 01/02/20 11:42 Dose: 200 mls/hr Penicillin G Potassium 2.5 (millunits/ Sodium Chloride) 100 mls @ 200 mls/hr IV Q4HR [facility] Last Admin: 01/02/20 23:03 Dose: Not Given Penicillin G Potassium 2.5 (millunits/ Sodium Chloride) 100 mls @ 200 mls/hr IV Q4H [facility] Last Admin: 01/02/20 22:47 Dose: Not Given Cefazolin Sodium/Dextrose 2 gm (/ Premix) 50 mls @ 100 mls/hr IV ONETIME ONE Stop: 01/02/20 20:08 Last Admin: 01/02/20 19:54 Dose: 100 mls/hr Oxytocin/Sodium Chloride (Pitocin In Ns 30 Unit/500 Ml) Confirm Administered Dose 60 unit in 1,000 mls @ as directed .ROUTE .[facility]-MED ONE Stop: 01/02/20 19:42 Cefazolin Sodium/Dextrose 1 gm (/ Premix) 50 mls @ 100 mls/hr IV Q8HR [facility] Stop: 01/03/20 22:29 Last Admin: 01/03/20 21:48 Dose: 100 mls/hr Ketorolac Tromethamine (Toradol) 15 mg IVPUSH Q6H [facility] Stop: 01/03/20 15:01 Last Admin: 01/03/20 14:47 Dose: 15 mg Misoprostol (Cytotec) 50 mcg VAG ONETIME ONE Stop: 01/02/20 09:25 Last Admin: 01/02/20 11:46 Dose: Not Given Misoprostol (Cytotec) 50 mcg VAG ONETIME ONE Stop: 01/02/20 11:46 Last Admin: 01/02/20 11:47 Dose: 50 mcg - Interaction Disposition, : [place] in Room with Family Interaction: Holding Infant Feeding: Bottle Fed Support Person: Significant Other - Recovery Exam Fundal Tone: Firm Fundal Level: 2 Fingerbreadths Below Umbilicus Fundal Placement: Midline Lochia Amount: Small Lochia Color: Rubra/Red Perineum Description: Intact, Minimal Bruising/Swelling Episiotomy/Laceration: None Bladder Status: Nonpalpable, Voiding Urinary Elimination: Voided - Exam General: Alert, Oriented, Cooperative, No Acute Distress HEENT: Pupils Equal, Pupils Reactive, EOMI, Mucous Membr. Moist/[place] Neck: Supple Lungs: Clear to Auscultation, Normal Respiratory Effort Cardiovascular: Regular Rate, Regular Rhythm, No Murmurs GI/Abdominal Exam: Normal Bowel Sounds, Soft, Non-Tender, No Distention Extremities: Normal Inspection, Normal Range of Motion, Non-Tender, No Pedal Edema, Normal Capillary Refill Skin: Warm, Dry, Intact Wound/Incisions: Healing Well, Dressing Dry and Intact Neurological: No New Focal Deficit, Normal Gait, Normal Speech, Normal Tone Psy/Mental Status: Alert, Normal Affect, Normal Mood - Problem List Review Problem List Initiated/Reviewed/Updated: Yes - My Orders Last 24 Hours: My Active Orders 01/04/20 11:46 Ferrous Sulfate 325 mg PO NOW STA 01/04/20 18:00 Ferrous Sulfate 325 mg PO BIDMEALS - Assessment Assessment:: PPD/POD # 2 S/P LTC/S Doing well Acute anemia secondary to blood loss - Plan Plan:: PLAN: Continue present care Increase ambulation Ferrous sulfate 325 mg po bid po All questions answered. Discharge planning for tomorrow. Recheck CBC in morning tomorrow.
[2020-01-04] MEDS: Ferrous Sulfate 325 MG Tab PO SCH (17:38)
[2020-01-05] MEDS: Ibuprofen 800 MG Tab PO PRN ×2 (00:45→08:36)
[2020-01-05] MEDS: Acetaminophen/oxyCODONE 325-5 MG Tab PO PRN ×2 (02:34→08:36)
[2020-01-05] MEDS: Simethicone 80 MG Tab.Chew PO SCH (08:34)
[2020-01-05] MEDS: Prenatal Multivitamin with Calcium/Folic Acid/Iron Tab PO SCH (08:35)
[2020-01-05] MEDS: Docusate Sodium 100 MG Cap PO PRN (08:35)
[2020-01-05] MEDS: Ferrous Sulfate 325 MG Tab PO SCH (08:35)
[2020-01-05] MEDS ORDERED: Oxytocin/Normal Saline 30 UNIT/500 ML BAG IV ONE (11:39)
[2020-01-05] MEDS ORDERED: Ondansetron 4 MG/2 ML SDV IV ONE (11:39)
[2020-01-05] MEDS ORDERED: diphenhydrAMINE 50 MG/ML SDV IV ONE (11:39)
[2020-01-05] MEDS ORDERED: Dexamethasone 4 MG/ML SDV IV ONE (11:39)
[2020-01-05] MEDS ORDERED: ePHEDrine 50 MG/ML SDV IV ONE (11:39)
== END 2020-01-05 11:40 | disposition home or self-care (01) | DRG 540 ==
LOC: UNDOADMOB 09:16 → DL.OB 09:16 → EDSTATUS 09:54 → DL.OB 20:11 → INTOOBSV 20:22 → DL.OB 20:22 → OBSVTOIN 20:22
PROVIDERS: ADMIT Family Medicine; ATTEND Family Medicine
PROC: 10D00Z1 Extraction of Products of Conception, Low, Open Approach (ICD-10-PCS; principal; 2020-01-02)
PROC: 10907ZC Drainage of Amniotic Fluid, Therapeutic from Products of Conception, Via Natural or Artificial Opening (ICD-10-PCS; 2020-01-02)
PROC: 3E0P7VZ Introduction of Hormone into Female Reproductive, Via Natural or Artificial Opening (ICD-10-PCS; 2020-01-02)
PROC: 3E033VJ Introduction of Other Hormone into Peripheral Vein, Percutaneous Approach (ICD-10-PCS; 2020-01-02)
PROC: 4A1HXCZ Monitoring of Products of Conception, Cardiac Rate, External Approach (ICD-10-PCS; 2020-01-02)
DX: O99.824 Streptococcus B carrier state complicating childbirth (principal); Z3A.39 39 weeks gestation of pregnancy; Z37.0 Single live birth; O99.284 Endocrine, nutritional and metabolic diseases complicating childbirth; E03.9 Hypothyroidism, unspecified; O76 Abnormality in fetal heart rate and rhythm complicating labor and delivery; D62 Acute posthemorrhagic anemia; O99.02 Anemia complicating childbirth
CPT/HCPCS: 36415; 51702; 59025; 59409; 81003; 82565; 82570; 83615; 84156; 84450; 84460; 84520; 84550; 85025; 85027; 86850; 86900; 86901; A9270-GY; J0595; J0690; J1100; J1200; J1885; J2405; J2540; J2590; J3490; J7050; J7120; U0002

== ENCOUNTER 2021-04-12 06:32 | Day surgery (SDC) | payer BC ==
[~2021-04-12 06:32] MED LIST: Dextrose 5%-0.45% NaCl 1,000 ML IV SCH; Midazolam 1 MG/ML 2 ML SDV ONE; Sodium Chloride 0.9% 10 ML Syringe FLUSH PRN; fentaNYL 100 MCG/2 ML SDV ONE
[2021-04-12] MEDS ORDERED: Midazolam 1 MG/ML 2 ML SDV IV ONE ×7 (06:33→08:32)
[2021-04-12] MEDS ORDERED: fentaNYL 100 MCG/2 ML SDV IV ONE ×4 (06:33→08:36)
--- NOTE | 2021-04-12 11:46 | LETTER ---
04/12/2021 RE: ROSEANNESHANE GAYLA : 1980 [address] Mcdonald, [facility] [address] [place] [address] Dear Ms. Mcdonald: Ms. Shane Phillips had colonoscopic examination done this morning and she tolerated the procedure well. I herewith send a copy of the endoscopy note and photographs for your review. Thank you. Sincerely, [facility] /[id number]
--- NOTE | 2021-04-12 12:29 | OR ---
DATE: 04/12/2021 PROCEDURES: Total colonoscopy, terminal ileoscopy, cold snare polypectomy, and multiple pinch biopsies. INSTRUMENT USED: [id number]-H190DL Olympus video colonoscope. PREMEDICATIONS: Fentanyl 125 mcg intravenous, Versed 4 mg intravenous. The procedure was done under pulse oximetry, BP recording, and cardiac exercise physiologist. INDICATION: The patient with chronic diarrhea and rectal bleeding unexplained and not responsive to medical measures. Colonoscopic examination is done for detection of any polypoid lesions and removal. Biopsies to be obtained for any evidence of microscopic colitis, endoscopic hemostasis therapy if needed. DESCRIPTION OF PROCEDURE: Initial rectal exam was unremarkable. Rigid anoscopy was normal. The colonoscope was passed with ease beyond the ileocecal junction to visualize normal-appearing terminal ileum. Photograph was taken. Multiple pinch biopsies were obtained and sent for histopathology. Photographs were also taken of the cecum showing 5 mm size polyp. Cold snare polypectomy was done. The tissues were retrieved and sent for histopathology. No bleeding was noted from any of the visualized areas at the commencement of the examination. Bowel preparation was found to be adequate, [place] scale 2 in right colon, 3 in transverse and left colon, total score 8. No stricture. No vascular ectasia. No large isolated ulcerations seen. No evidence of diffuse inflammatory bowel disease in the form of friability, contact bleeding, or ulcerations. Probing the proximal sides of folds and flexures using adequate distention and clearing of the stool material, withdrawal of the scope was made. Pinch biopsies were taken from the normal-appearing mucosa of the mid transverse colon, mid descending colon, and rectosigmoid and sent for any histopathologic evidence of microscopic colitis. No bleeding was noted from any of the visualized areas at the completion of examination. IMPRESSION: Cecal polyp. The patient tolerated the procedure well. [facility] /[id number]
== END 2021-04-12 11:00 | disposition home or self-care (01) ==
LOC: DL.ENDO 06:32
PROVIDERS: ATTEND Internal Medicine Gastroenterology
DX: D12.0 Benign neoplasm of cecum (principal); K52.9 Noninfective gastroenteritis and colitis, unspecified; E03.9 Hypothyroidism, unspecified; E66.09 Other obesity due to excess calories; Z90.49 Acquired absence of other specified parts of digestive tract; Z88.1 Allergy status to other antibiotic agents; Z68.34 Body mass index [BMI] 34.0-34.9, adult
CPT/HCPCS: J2250; J3010; J7042